=== PATIENT | female | born 1990 | race Caucasian/White ===

== ENCOUNTER 2020-01-26 19:23 | Emergency (ER) | payer BC, SELFPAY ==
--- NOTE | ~2020-01-26 | CT_ITS ---
EXAMINATION: CT abdomen pelvis w con DATE: 01/26/2020 21:18 INDICATION: Lower abdominal pain and cramping. TECHNIQUE: Computed tomography (CT) of the abdomen and pelvis was performed with 100 cc Omnipaque 350 intravenous contrast. The dose-length product was 453.17 mGy-cm. Automated exposure control and iter ative reconstruction technique were employed. COMPARISON: CT dated 06/07/2008 FINDINGS: Lung bases are unremarkable. Heart size normal. No significant pleural or pericardial effus ion. No significant vascular abnormality. No lymphadenopathy. The liver, spleen, pancreas, adrenal glands and kidneys are unremarkable. Normal appendix. Nonobstruc tive bowel gas pattern. No free air or free fluid. No abnormal pelvic masses or fluid collections. Th ere is mild sclerosis of the right sacroiliac joint without ankylosis, possibly degenerative. No acut e osseous abnormality. IMPRESSION: 1. No acute abdominal abnormality. Reviewed, dictated and finalized at location A.
[2020-01-26 19:39] VITALS: BP 118/79; PULSE 90; RESP 16; TEMP 36.7; O2SAT 100
[2020-01-26 19:58] LABS: Add Urine Microscopic? NO; Appearance Urine Clear (Clear); Bilirubin Urine Negative (Negative); Blood Urine Negative (Negative); Color Urine Yellow (Yellow); Glucose Urine UA Negative (Negative); Ketones Urine Negative (Negative); Leukocyte Esterase Ur Negative LEU/UL (Negative); Nitrate Urine Negative (Negative); Protein Urine Negative (Negative); Specific Grav Ur 1.021 (1.001-1.035); Urobilinogen Urine Negative mg/dL (<2.0)
--- NOTE | 2020-01-26 20:14 | ED.ABDPAIN ---
HPI - Abdominal Pain General Chief Complaint: [employer] <AILEEN Elias Last Filed: 01/26/20 22:23> Stated Complaint: cramping, back pain, spotting <AILEEN Elias Last Filed: 01/26/20 22:23> Time Seen by Provider: 01/26/20 20:00 <AILEEN Elias Last Filed: 01/26/20 22:23> Source: patient <AILEEN Elias Last Filed: 01/26/20 22:23> Mode of arrival: ambulatory <AILEEN Elias Last Filed: 01/26/20 22:23> Limitations: no limitations <AILEEN Elias Last Filed: 01/26/20 22:23> History of Present Illness HPI narrative: This is a 29 year old female that presents to the ER for pelvic/abdominal pain x 2 months. Reports the pain is cramping. Reports the pain radiates into her back. Reports she has been having abnormal periods. Also reports nausea. Reports she was worried her thyroid was off and has an appointment to see her [employer] soon. Denies fever, vomiting, dysuria or hematuria. <AILEEN Elias Last Filed: 01/26/20 22:23> Related Data Home Medications: Home Medications Medication Instructions Recorded Confirmed norgestimate-ethinyl estradiol 1 tablet PO DAILY 01/26/20 [Tri-Previfem (28)] thyroid (pork) [Wallace Thyroid] 120 mg PO DAILY 01/26/20 <AILEEN Elias Last Filed: 01/26/20 22:23> Allergies/Adverse Reactions: Allergies Allergy/AdvReac Type Severity Reaction Status Date / Time No Known Allergies Allergy Unknown Unverified 01/26/20 19:37 <AILEEN Elias Last Filed: 01/26/20 22:23> Review of Systems Review of Systems: Narrative: CONSTITUTIONAL: Denies fever GASTROINTESTINAL: Reports abdominal pain, nausea. Denies vomiting, or diarrhea. GENITOURINARY: Denies dysuria or hematuria. MUSCULOSKELETAL: Reports back pain <AILEEN Elias Last Filed: 01/26/20 22:23> All systems reviewed & are unremarkable except as noted in HPI and below <Ashleigh Torres PA-C - Last Filed: 01/26/20 22:23> PMFSH Past Medical History Medical History: Medical History (Updated 01/26/20 @ 22:23 by Ashleigh Torres PA-C) History of thyroid cancer <Ashleigh Torres PA-C - Last Filed: 01/26/20 22:23> Surgical History Surgical History: Surgical History (Updated 01/26/20 @ 20:17 by Ashleigh Torres PA-C) History of cholecystectomy History of tonsillectomy <Ashleigh Torres PA-C - Last Filed: 01/26/20 22:23> Social History Social History: Social History Gender identity (if verbalized by the patient): Female <Ashleigh Torres PA-C - Last Filed: 01/26/20 22:23> Exam Narrative: Exam Narrative: GENERAL: Well-appearing, well-nourished, and in no acute distress. HEAD: Normocephalic, atraumatic. EYES: EOMI. CHEST: Clear to auscultation. No respiratory distress. No wheezes rales or rhonchi HEART: Regular rate and rhythm. No murmur heard. Normal peripheral pulses. ABDOMEN: Soft, nondistended, normal active bowel sounds. Mild tenderness to palpation throughout the lower abdomen, without guarding EXTREMITIES: Normal range of motion. No edema. SKIN: Warm, dry, no rash. NEURO: No focal deficits. Alert and oriented x3. PSYCH: Normal mood and affect <Ashleigh Torres PA-C - Last Filed: 01/26/20 22:23> Course Vital Signs Vital signs: Vital Signs Temperature 36.7 C 01/26/20 19:39 Pulse Rate 90 01/26/20 19:39 Respiratory Rate 16 01/26/20 19:39 Blood Pressure 118/79 01/26/20 19:39 Pulse Oximetry 100 01/26/20 19:39 Temperature 36.7 C 01/26/20 19:39 Pulse Rate 81 01/26/20 22:33 Respiratory Rate 17 01/26/20 22:33 Blood Pressure 107/80 01/26/20 22:33 Pulse Oximetry 98 01/26/20 22:33 <Ashleigh Torres PA-C - Last Filed: 01/26/20 22:23> Vital Signs Temperature 36.7 C 01/26/20 19:39 Pulse Rate 90 01/26/20 19:39 Respiratory Rate 16 01/26/20 19:39 Blood Pressure 118/79 01/26/20 19:39 Pulse Oximetry 100 0
[2020-01-26] MEDS: KETOROLAC 30 MG/ML VIAL (*BKC) IV PUSH (20:23)
[2020-01-26 20:31] LABS: Basophils Percent Auto 0.5 % (0.2-1.2); Eosinophils Absolute Auto 0.3 K/mm3 (0-0.3); Eosinophils Percent Auto 3.3 % (0-4.4); Hematocrit 37.2 % (37.0-47.0); Hemoglobin 12.8 g/dL (12.0-15.0); Immature Granulocyte Absolute 0.01 K/mm3 (0.00-0.031); Immature Granulocyte Percent A 0.1 % (0-0.5); Lymphocytes Absolute Auto 2.69 K/mm3 (0.9-3.2); Lymphocytes Percent Auto 35.6 % (18.3-44.2); Mean Corpuscular HGB Conc 34.4 g/dl (32-36); Mean Corpuscular Volume 87.1 fl (80-100); Mean Platelet Volume 10.1 fl (7.4-10.4); Monocytes Absolute Auto 0.4 K/mm3 (0.1-0.6); Monocytes Percent Auto 5.7 % (2.6-8.5); Neutrophils Absolute Auto 4.1 K/mm3 (1.3-6.7); Neutrophils Percent Auto 54.8 % (45.5-73.1); Platelet Count Result 210 k/mm3 (150-375); Red Blood Count 4.27 M/mm3 (4.2-5.4); White Blood Count 7.6 K/mm3 (4.5-10.0)
[2020-01-26 20:42] LABS: Alanine Aminotransferase 49 U/L (4-35); Albumin Level 4.4 g/dL (3.5-5.1); Alkaline Phosphatase 51 U/L (38-126); Anion Gap 11.9 mmol/L (7-16); Aspartate Amino Transferase 33 U/L (14-36); Bilirubin,Total 0.5 mg/dL (0.2-1.3); Blood Urea Nitrogen 14 mg/dL (7-17); Calcium 9.2 mg/dL (8.4-10.2); Carbon Dioxide 23 mmol/L (22-30); Chloride 105 mmol/L (98-107); Estimated CRCL calculation 90 ml/min; Estimated Glomerular Filt Rate > 60; Glucose 81 mg/dL (65-105); Potassium 3.9 mmol/L (3.4-5.0); Sodium 136 mmol/L (137-145)
[2020-01-26 21:40] VITALS: BP 114/70; PULSE 81; RESP 18; O2SAT 100
--- NOTE | 2020-01-26 21:58 | PC.NURSE ---
pt continues to rest on stretcher at this time. RR even and unlabored, VS stable. pt denies any needs/concerns. will continue to monitor pt for baseline status changes.
[2020-01-26 22:13] LABS: Free T4 Free Thyroxine Reflex 0.86 ng/dL (0.78-2.19)
[2020-01-26 22:33] VITALS: BP 107/80; PULSE 81; RESP 17; O2SAT 98
[2020-01-26 23:00] LABS: Total Triiodothyronine (T3) 1.25 NG/ML (0.97-1.69)
== END 2020-01-26 22:34 | disposition home or self-care (01) ==
PROVIDERS: Physician Assistant; Emergency Provider Emergency Medicine
DX: R10.2 Pelvic and perineal pain (principal); N93.9 Abnormal uterine and vaginal bleeding, unspecified; M54.5 Low back pain; Z85.850 Personal history of malignant neoplasm of thyroid
CPT/HCPCS: 36415; 74177; 80053; 81003; 81025; 84439; 84443; 84480; 85025; 96374; 99284; J1885; Q9967

== ENCOUNTER 2021-05-01 10:50 | Outpatient (CLI) | payer BC, SELFPAY ==
--- NOTE | ~2021-05-01 | US_ITS ---
EXAMINATION: US soft tissue head and neck EXAM DATE: 05/01/2021 11:19 INDICATION: Z85.850 - Personal history of malignant neoplasm of thyroid . TECHNIQUE: Multiple grayscale and Doppler images of the neck soft tissue were obtained (by a technolo gadiel who performed the scan) and subsequently reviewed. There is no prior study for comparison. FINDINGS: Scanning the right and left thyroidectomy bed demonstrates no focal mass or internal jugular chain ly mphadenopathy. IMPRESSION: 1. Unremarkable thyroidectomy bed. Reviewed, dictated and finalized at location A.
== END 2021-05-01 10:51 | disposition home or self-care (01) ==
LOC: ANHIMG 10:51
PROVIDERS: PCP Internal Medicine; Visit Provider Internal Medicine
DX: Z85.850 Personal history of malignant neoplasm of thyroid (principal)
CPT/HCPCS: 76536

== ENCOUNTER → 2021-07-02 11:07 | Outpatient (REF) | payer BC, SELFPAY | LOC: ANHLAB 11:07 | PROVIDERS: PCP Internal Medicine; Visit Provider Nurse Practitioner | DX: L81.4 Other melanin hyperpigmentation (principal) | CPT/HCPCS: 88305 ==

== ENCOUNTER 2021-07-23 09:54 | Outpatient (CLI) | payer BC, SELFPAY ==
--- NOTE | ~2021-07-23 | XR_ITS ---
EXAMINATION: XR TMJ BI DATE: 07/23/2021 10:12 INDICATION: Jaw pain and clicking. TECHNIQUE: Open and closed mouth lateral views of the bilateral temporomandibular joints for a total of 4 views were obtained. COMPARISON: Head CT 09/22/2009 FINDINGS: The mandibular condyles are normal in morphology. No narrowing of the temporomandibular guerline nts. There is normal anterior translation of the mandibular condyles in the open-mouth position. IMPRESSION: 1. Normal temporomandibular joints. Reviewed, dictated and finalized at location A. [employer]
== END 2021-07-23 09:55 | disposition home or self-care (01) ==
LOC: ANHIMG 09:57
PROVIDERS: PCP Internal Medicine; Visit Provider Internal Medicine
DX: R68.84 Jaw pain (principal)
CPT/HCPCS: 70330